=== PATIENT | female | born 1935 | race Caucasian/White ===

== ENCOUNTER 2022-01-02 20:54 | Inpatient (IN) | payer MEDICARE ==
[2022-01-02 23:09] LABS: #Eosinphils 0.1 10x3/uL (0.0-0.5); #Monocytes 0.6 10x3/uL (0.0-1.1); #Neutrophils 3.3 10x3/uL (1.5-8.4); %Basophils 0.5 % (0.0-2.0); %Lymphocytes 24.5 % (18.0-47.0); %Monocytes 11.7 % (0.0-10.0); %Neutrophils 60.9 % (40.0-75.0); Hemoglobin 11.1 g/dL (12.0-15.5); Mean Corpuscular HGB CONC 31.4 g/dL (32.0-36.0); Mean Corpuscular Hemoglobin 28.2 pg (27.0-33.0); Mean Corpuscular Volume 90.1 fl (81.6-98.3); Mean Platelet Volume 10.4 fl (7.4-10.4); Platelet Count 159 10x3/uL (150-450); RBC Distribution Width 14.8 % (11.5-14.5); Red Blood Cell (RBC) Count 3.93 10x6/uL (3.90-5.03); White Blood Cell (WBC) Count 5.5 10x3/uL (3.5-10.5)
[2022-01-02 23:20] LABS: PTT 23.7 sec (22.0-33.0); Prothrombin Time 10.7 sec (9.5-12.1)
[2022-01-02 23:23] LABS: ALT (SGPT) 14 U/L (8-55); AST (SGOT) 21 U/L (5-34); Albumin 3.6 g/dL (3.4-4.8); Alkaline Phosphatase 71 U/L (40-110); Anion Gap 11 mmol/L (10-20); BUN (Urea Nitrogen) 21 mg/dL (9.8-20.1); Bilirubin, Total 0.2 mg/dL (0.2-1.2); Calc. Creatinine Clearance 0 mL/min (70-130); Carbon Dioxide 28 mmol/L (23-31); Chloride 104 mmol/L (98-107); Globulin 2.5 g/dL (2.4-3.5); Glucose 100 mg/dL (83-110); Potassium 4.4 mmol/L (3.5-5.1); Protein, Total 6.1 g/dL (5.8-8.1); Sodium 139 mmol/L (136-145)
[2022-01-03] MEDS ORDERED: Morphine 4 MG/ML VIAL SLOW IVP PRN ×2 (00:15→16:00)
[2022-01-03 01:52] VITALS: BMI 21.3
[2022-01-03] MEDS: Flecainide 50 MG TAB PO SCH ×2 (02:26→03:45)
[2022-01-03] MEDS: Dextrose 5%-Lactated Ringers 1,000 ML IV SCH ×2 (02:26→09:58)
[2022-01-03] MEDS ORDERED: Flecainide 50 MG TAB PO SCH ×3 (03:45→21:00)
[2022-01-03 11:22] LABS: SARS-CoV-2 NAA Rapid Test Not Detected (NotDetected)
[2022-01-03 12:07] VITALS: BP 135/58; TEMP 98.5
== END 2022-01-03 16:24 | disposition short-term general hospital (02) | DRG 561 ==
LOC: CSHERS 20:54 → CSHTELE 01-03 00:39
PROVIDERS: ADMIT Specialist; ATTEND Specialist
DX: T84.021A Dislocation of internal left hip prosthesis, initial encounter (principal); Y83.8 Other surgical procedures as the cause of abnormal reaction of the patient, or of later complication, without mention of misadventure at the time of the procedure; M19.90 Unspecified osteoarthritis, unspecified site; Z20.822 Contact with and (suspected) exposure to COVID-19; Z85.828 Personal history of other malignant neoplasm of skin; Z90.10 Acquired absence of unspecified breast and nipple; Z90.710 Acquired absence of both cervix and uterus; Z88.8 Allergy status to other drugs, medicaments and biological substances; Z91.040 Latex allergy status
CPT/HCPCS: 36415; 80053; 85025; 85610; 85730; 93005; 93010; J2270; U0002

== ENCOUNTER 2022-07-18 10:45 | Outpatient (CLI) | payer MEDICARE | END 2022-07-18 10:46 | disposition home or self-care (01) | LOC: CSHMAMMO 10:45 | PROVIDERS: ATTEND Internal Medicine Hematology & Oncology | DX: Z12.31 Encounter for screening mammogram for malignant neoplasm of breast (principal); Z85.3 Personal history of malignant neoplasm of breast; Z80.3 Family history of malignant neoplasm of breast; M81.0 Age-related osteoporosis without current pathological fracture; Z98.890 Other specified postprocedural states | CPT/HCPCS: 77063; 77067; 77080 ==

== ENCOUNTER 2023-03-09 17:31 | Observation (INO) | payer MEDICARE ==
[2023-03-09] MEDS ORDERED: traMADol HCl 50 MG TAB PO PRN (18:30)
[2023-03-09 20:13] VITALS: BMI 21.7
[2023-03-09] MEDS ORDERED: Flecainide 50 MG TAB PO SCH (21:00)
[2023-03-09] MEDS: Apixaban 2.5 MG TAB PO SCH (22:15)
[2023-03-10 05:51] LABS: #Basophils 0.1 10x3/uL (0.0-0.2); #Eosinphils 0.2 10x3/uL (0.0-0.5); #Monocytes 0.7 10x3/uL (0.0-1.1); #Neutrophils 3.3 10x3/uL (1.5-8.4); %Basophils 0.9 % (0.0-2.0); %Eosinophils 3.3 % (0.0-6.0); %Lymphocytes 26.7 % (18.0-47.0); %Monocytes 12.7 % (0.0-10.0); %Neutrophils 56.2 % (40.0-75.0); Hemoglobin 11.1 g/dL (12.0-15.5); Mean Corpuscular HGB CONC 31.2 g/dL (32.0-36.0); Mean Corpuscular Hemoglobin 27.7 pg (27.0-33.0); Mean Corpuscular Volume 88.8 fl (81.6-98.3); Mean Platelet Volume 10.3 fl (7.4-10.4); Platelet Count 182 10x3/uL (150-450); RBC Distribution Width 14.3 % (11.5-14.5); Red Blood Cell (RBC) Count 4.01 10x6/uL (3.90-5.03); White Blood Cell (WBC) Count 5.8 10x3/uL (3.5-10.5)
[2023-03-10 05:59] LABS: Anion Gap 12 mmol/L (10-20); BUN (Urea Nitrogen) 12 mg/dL (9.8-20.1); Calc. Creatinine Clearance 48 mL/min (70-130); Calcium 8.6 mg/dL (7.8-10.44); Carbon Dioxide 24 mmol/L (23-31); Chloride 110 mmol/L (98-107); Estimated GFR 73; Glucose 85 mg/dL (83-110); Sodium 142 mmol/L (136-145)
[2023-03-10] MEDS ORDERED: Flecainide 50 MG TAB PO SCH (07:30)
[2023-03-10] MEDS: Apixaban 2.5 MG TAB PO SCH (08:08)
[2023-03-10] MEDS ORDERED: Apixaban 5 MG TAB PO SCH (09:00)
[2023-03-10 13:25] VITALS: BP 154/67; TEMP 98.1
== END 2023-03-10 14:35 | disposition home or self-care (01) ==
LOC: CSHTELE 17:51
PROVIDERS: ADMIT Family Medicine; ATTEND Internal Medicine
DX: R00.1 Bradycardia, unspecified (principal); I48.91 Unspecified atrial fibrillation; I10 Essential (primary) hypertension; Z79.82 Long term (current) use of aspirin; Z88.4 Allergy status to anesthetic agent; Z88.8 Allergy status to other drugs, medicaments and biological substances; Z88.5 Allergy status to narcotic agent; Z79.899 Other long term (current) drug therapy; Z79.01 Long term (current) use of anticoagulants
CPT/HCPCS: 80048; 85025; 94760; 97116; G0378 ×2; 36415

== ENCOUNTER 2023-07-19 12:12 | Outpatient (CLI) | payer MEDICARE | END 2023-07-19 12:13 | disposition home or self-care (01) | LOC: CSHMAMMO 12:12 | PROVIDERS: ATTEND Internal Medicine Hematology & Oncology | DX: Z12.31 Encounter for screening mammogram for malignant neoplasm of breast (principal); Z80.3 Family history of malignant neoplasm of breast; Z85.3 Personal history of malignant neoplasm of breast; Z90.11 Acquired absence of right breast and nipple | CPT/HCPCS: 77063; 77067 ==

== ENCOUNTER 2023-11-01 10:45 | Emergency (ER) | payer MEDICARE ==
[2023-11-01] MEDS ORDERED: dilTIAZem 30 MG TAB PO SCH ×2 (11:15→12:15)
[2023-11-01] MEDS ORDERED: dilTIAZem 25 MG/5 ML VIAL ONE (11:27)
[2023-11-01 11:33] LABS: #Monocytes 0.5 10x3/uL (0.0-1.1); #Neutrophils 3.2 10x3/uL (1.5-8.4); %Basophils 0.2 % (0.0-2.0); %Eosinophils 0.8 % (0.0-6.0); %Lymphocytes 29.4 % (18.0-47.0); %Monocytes 8.7 % (0.0-10.0); %Neutrophils 60.7 % (40.0-75.0); Hematocrit 37.9 % (34.9-44.5); Hemoglobin 12.3 g/dL (12.0-15.5); Mean Corpuscular HGB CONC 32.5 g/dL (32.0-36.0); Mean Corpuscular Hemoglobin 29.1 pg (27.0-33.0); Mean Corpuscular Volume 89.6 fl (81.6-98.3); Mean Platelet Volume 9.8 fl (7.4-10.4); Platelet Count 206 10x3/uL (150-450); RBC Distribution Width 13.4 % (11.5-14.5); Red Blood Cell (RBC) Count 4.23 10x6/uL (3.90-5.03); White Blood Cell (WBC) Count 5.3 10x3/uL (3.5-10.5)
[2023-11-01 11:43] LABS: ALT (SGPT) 17 U/L (8-55); AST (SGOT) 24 U/L (5-34); Albumin 3.6 g/dL (3.4-4.8); Alkaline Phosphatase 76 U/L (40-110); Anion Gap 12 mmol/L (10-20); BUN (Urea Nitrogen) 9 mg/dL (9.8-20.1); Bilirubin, Total 0.4 mg/dL (0.2-1.2); Calc. Creatinine Clearance 0 mL/min (70-130); Calcium 8.8 mg/dL (7.8-10.44); Carbon Dioxide 27 mmol/L (23-31); Chloride 98 mmol/L (98-107); Estimated GFR 75; Globulin 2.3 g/dL (2.4-3.5); Glucose 93 mg/dL (83-110); Potassium 4.5 mmol/L (3.5-5.1); Protein, Total 5.9 g/dL (5.8-8.1); Sodium 132 mmol/L (136-145)
[2023-11-01 11:48] LABS: Troponin I Less than 0.010 ng/mL (< 0.028)
== END 2023-11-01 14:20 | disposition home or self-care (01) ==
LOC: CSHERS 10:45
DX: I48.91 Unspecified atrial fibrillation (principal); Z79.01 Long term (current) use of anticoagulants
CPT/HCPCS: 71045; 80053; 83880; 84484; 85025; 93005; 96374

== ENCOUNTER 2024-05-20 11:58 | Inpatient (IN) | payer MEDICARE ==
[2024-05-20] MEDS ORDERED: Communication Order-Pharmacy FS SCH (14:00)
[2024-05-20 14:04] VITALS: BMI 22.1
[2024-05-20] MEDS ORDERED: Ondansetron PF 4 MG/2 ML Vial IVP PRN (14:39)
[2024-05-20 15:17] LABS: Critical Call Chem Troponin I OS.RL2@1517; Troponin I 1.248 ng/mL (< 0.028)
[2024-05-20 17:50] LABS: Troponin I 1.139 ng/mL (< 0.028)
[2024-05-20] MEDS: HYDROcodone/Acetaminophen 10/325 mg Tablet PO SCH (20:25)
[2024-05-20] MEDS: Famotidine 20 MG TAB PO SCH (20:26)
[2024-05-20] MEDS: Enoxaparin 60 MG (0.6 mL) SYRINGE SC SCH (20:26)
[2024-05-21 05:00] LABS: INR-International Normal Ratio 1.1; PTT 30.8 sec (22.0-33.0); Prothrombin Time 11.8 sec (9.5-12.1)
[2024-05-21 05:05] LABS: ALT (SGPT) 11 U/L (8-55); AST (SGOT) 25 U/L (5-34); Alkaline Phosphatase 82 U/L (40-110); Anion Gap 12 mmol/L (10-20); BUN (Urea Nitrogen) 10 mg/dL (9.8-20.1); Bilirubin, Total 0.4 mg/dL (0.2-1.2); Calc. Creatinine Clearance 48 mL/min (70-130); Calcium 8.9 mg/dL (7.8-10.44); Carbon Dioxide 26 mmol/L (23-31); Cardiac Risk 3.3 (Less than 4.5); Chloride 103 mmol/L (98-107); Cholesterol 164 mg/dl (< 200 Desired); Estimated GFR 76; Globulin 2.7 g/dL (2.4-3.5); Glucose 88 mg/dL (83-110); HDL Cholesterol 49 mg/dL (>60 Neg Risk); LDL Cholesterol, Calculated 98 mg/dL; Potassium 3.9 mmol/L (3.5-5.1); Protein, Total 5.7 g/dL (5.8-8.1); Sodium 137 mmol/L (136-145); Triglycerides 87 mg/dL (Less than 150)
[2024-05-21 05:33] LABS: #Basophils 0.07 10x3/uL (0.0-0.2); #Eosinphils 0.28 10x3/uL (0.0-0.5); #Monocytes 0.77 10x3/uL (0.0-1.1); #Neutrophils 3.21 10x3/uL (1.5-8.4); %Basophils 1.1 % (0.0-2.0); %Eosinophils 4.5 % (0.0-6.0); %Lymphocytes 29.5 % (18.0-47.0); %Monocytes 12.5 % (0.0-10.0); %Neutrophils 52.2 % (40.0-75.0); Hematocrit 31.9 % (34.9-44.5); Hemoglobin 10.5 g/dL (12.0-15.5); Mean Corpuscular HGB CONC 32.9 g/dL (32.0-36.0); Mean Corpuscular Hemoglobin 30.1 pg (27.0-33.0); Mean Corpuscular Volume 91.4 fL (81.6-98.3); Mean Platelet Volume 10.1 fL (7.4-10.4); Platelet Count 306 10x3/uL (150-450); RBC Distribution Width 15.5 % (11.5-14.5); Red Blood Cell (RBC) Count 3.49 10x6/uL (3.90-5.03); White Blood Cell (WBC) Count 6.2 10x3/uL (3.5-10.5)
[2024-05-21] MEDS: Aspirin Chewable 81 MG TAB PO SCH (06:23)
[2024-05-21] MEDS ORDERED: Heparin 10,000 UNITS/ 10 ML VIAL ONE (06:26)
[2024-05-21] MEDS ORDERED: Nitroglycerin 50 MG/250 ML BOT 250 ML ONE (06:26)
[2024-05-21] MEDS ORDERED: Verapamil 5 MG/2 ML VIAL ONE (06:26)
[2024-05-21] MEDS ORDERED: Lidocaine 1% (PF) 30 ML VIAL ONE (06:34)
[2024-05-21] MEDS ORDERED: fentaNYL 50 mcg/mL 1 mL Vial ONE (06:57)
[2024-05-21] MEDS ORDERED: Midazolam HCl 2 mg/2 ml Vial ONE (06:57)
[2024-05-21] MEDS ORDERED: Sodium Chloride 0.9% 200 ML IV PRN (07:44)
[2024-05-21] MEDS ORDERED: Nitroglycerin 0.4 MG TAB (25 Tab Bottle) SL PRN (07:44)
[2024-05-21] MEDS: Acetaminophen 325 MG TAB PO PRN (08:23)
[2024-05-21] MEDS: Famotidine 20 MG TAB PO SCH (08:23)
[2024-05-21] MEDS: Multivit, Therapeutic 1 TAB PO SCH (08:23)
[2024-05-21] MEDS: Carvedilol 3.125 MG TAB PO SCH (08:25)
[2024-05-21] MEDS ORDERED: Flecainide 50 MG TAB PO SCH (09:00)
[2024-05-21] MEDS: Azelastine 137 MCG/NASAL Spray 30 ML NS SCH (09:05)
[2024-05-21 09:37] VITALS: TEMP 98.3
[2024-05-21] MEDS ORDERED: Ipratropium Bromide 2.5 ml Neb NEB PRN (11:43)
[2024-05-21 11:51] VITALS: BP 133/62
[2024-05-21] MEDS: Valsartan 80 MG TAB PO SCH (12:35)
[2024-05-21] MEDS: HYDROcodone/Acetaminophen 10/325 mg Tablet PO PRN (13:49)
[2024-05-21] MEDS ORDERED: Calcium Carbonate 500 MG ChewTAB PO SCH (21:00)
[2024-05-22] MEDS ORDERED: Aspirin 325 mg Enteric Coated Tablet PO SCH (09:00)
== END 2024-05-21 15:45 | disposition home or self-care (01) | DRG 281 ==
LOC: CSHTELE 13:15
PROVIDERS: ADMIT Hospitalist; ATTEND Hospitalist
PROC: 4A023N7 Measurement of Cardiac Sampling and Pressure, Left Heart, Percutaneous Approach (ICD-10-PCS; principal; 2024-05-21)
PROC: B2111ZZ Fluoroscopy of Multiple Coronary Arteries using Low Osmolar Contrast (ICD-10-PCS; 2024-05-21)
PROC: B2151ZZ Fluoroscopy of Left Heart using Low Osmolar Contrast (ICD-10-PCS; 2024-05-21)
DX: I21.4 Non-ST elevation (NSTEMI) myocardial infarction (principal); I51.81 Takotsubo syndrome; I48.0 Paroxysmal atrial fibrillation; Z66 Do not resuscitate; Z79.899 Other long term (current) drug therapy; Z79.82 Long term (current) use of aspirin; Z88.8 Allergy status to other drugs, medicaments and biological substances; Z90.710 Acquired absence of both cervix and uterus; Z98.890 Other specified postprocedural states
CPT/HCPCS: 80053; 80061; 84484; 85025; 85610; 85730; 93306; 93458; C1769; C1894; J1644; J1650; J2001; J2250; J3010

== ENCOUNTER 2024-09-10 13:12 | Outpatient (CLI) | payer MEDICARE | END 2024-09-10 13:13 | disposition home or self-care (01) | LOC: CSHMAMMO 13:12 | PROVIDERS: ATTEND Internal Medicine Hematology & Oncology | DX: Z12.31 Encounter for screening mammogram for malignant neoplasm of breast (principal); N64.89 Other specified disorders of breast; Z80.3 Family history of malignant neoplasm of breast; Z85.3 Personal history of malignant neoplasm of breast; Z98.890 Other specified postprocedural states | CPT/HCPCS: 77063; 77067 ==

== ENCOUNTER 2024-09-18 09:27 | Outpatient (CLI) | payer MEDICARE | END 2024-09-18 09:28 | disposition home or self-care (01) | LOC: CSHMAMMO 09:27 | PROVIDERS: ATTEND Internal Medicine Hematology & Oncology | DX: N64.89 Other specified disorders of breast (principal); N63.22 Unspecified lump in the left breast, upper inner quadrant | CPT/HCPCS: 76642; 77065; G0279 ==